=== PATIENT | male | born 1935 | race African-American/Black ===

== ENCOUNTER 2017-06-21 23:12 | Emergency (ER) | payer MEDICARE ==
[2017-06-22] MEDS ORDERED: traMADol 50 MG TABLET (00:46)
[2017-06-22] MEDS: traMADol 50 MG TABLET PO (00:56)
== END 2017-06-22 01:01 | disposition home or self-care (01) ==
LOC: ER 06-22 01:01
DX: M25.532 Pain in left wrist (principal); E11.9 Type 2 diabetes mellitus without complications; E78.00 Pure hypercholesterolemia, unspecified; I10 Essential (primary) hypertension; Z86.73 Personal history of transient ischemic attack (TIA), and cerebral infarction without residual deficits; I25.2 Old myocardial infarction; Z87.891 Personal history of nicotine dependence
CPT/HCPCS: 99282